=== PATIENT | male | born 1995 | race Two or more races ===

== ENCOUNTER 2016-06-19 10:50 | Emergency (ER) | payer MEDICAID ==
[~2016-06-19] VITALS: Ht 175.3 cm; Wt 72.6 kg
[2016-06-19 11:51] VITALS: BP 113/60
== END 2016-06-19 14:05 | disposition home or self-care (01) ==
LOC: ER 10:50
DX: S93.401A Sprain of unspecified ligament of right ankle, initial encounter (principal); W01.0XXA Fall on same level from slipping, tripping and stumbling without subsequent striking against object, initial encounter; Y93.89 Activity, other specified; Y92.89 Other specified places as the place of occurrence of the external cause; Y99.8 Other external cause status
CPT/HCPCS: 73610